=== PATIENT | female | born 1950 | race Caucasian/White ===

== ENCOUNTER 2016-10-31 10:06 | Outpatient (CLI) | payer MEDICARE, OTHER | END 2016-10-31 10:07 | disposition home or self-care (01) | DX: Z12.31 Encounter for screening mammogram for malignant neoplasm of breast (principal) ==

== ENCOUNTER 2017-09-25 09:36 | Outpatient (CLI) | payer MEDICARE ==
--- NOTE | 2017-09-25 15:30 | XRAY Report ---
DATE OF SERVICE: 09/25/2017 TWO VIEW CHEST: 09/25/2017 CLINICAL INDICATION: Cough. FINDINGS: Frontal and lateral views of the chest demonstrate a normal cardiac silhouette. The lungs are clear. No effusion or pneumothorax is evident. IMPRESSION: NORMAL CHEST. TD: 09/25/2017 16:28
== END 2017-09-25 09:37 | disposition home or self-care (01) ==
LOC: DI.S 09:36
PROVIDERS: ATTEND Nurse Practitioner Family
DX: R05 Cough (principal)
CPT/HCPCS: 71046

== ENCOUNTER 2019-07-25 14:43 | Emergency (ER) | payer MEDICARE, OTHER ==
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
[2019-07-25] MEDS ORDERED: MORPHINE 2 MG/ML CARPUJECT IVP STA (15:01)
[2019-07-25] MEDS ORDERED: PROMETHAZINE 25 MG/1 ML VIAL IM STA (15:01)
[2019-07-25] MEDS ORDERED: BACITRACIN ZINC OINT 14 GM TOP ONE (15:15)
[2019-07-25] MEDS ORDERED: BACITRACIN ZINC OINT 14 GM TOP STA (16:10)
[2019-07-25] MEDS ORDERED: TETANUS/DIPHTHERIA/PERTUSSIS 0.5 ML SYRINGE IM ONE (16:10)
[2019-07-25 16:31] VITALS: BP 135/67
== END 2019-07-25 16:31 | disposition home or self-care (01) ==
LOC: ED 14:43
DX: T20.26XA Burn of second degree of forehead and cheek, initial encounter (principal); T20.24XA Burn of second degree of nose (septum), initial encounter; T20.16XA Burn of first degree of forehead and cheek, initial encounter; T20.17XA Burn of first degree of neck, initial encounter; T31.0 Burns involving less than 10% of body surface; X03.0XXA Exposure to flames in controlled fire, not in building or structure, initial encounter; Y93.89 Activity, other specified; Z23 Encounter for immunization
CPT/HCPCS: 90471; 90715; 96374; 99283; 99284; A9270

== ENCOUNTER 2021-09-30 13:56 | Outpatient (CLI) | payer MEDICARE, OTHER ==
--- NOTE | 2021-10-01 08:17 | Mammography Report ---
BILATERAL DIGITAL SCREENING MAMMOGRAM 3D/2D WITH EXAGGERATED CC: 09/30/2021 CLINICAL: Routine screening. Comparison is made to exams dated: 10/31/2016 mammogram - [facility] and 11/23/2013 mammogram - [facility]. The tissue of both breasts is predominantly fatty. No significant masses, calcifications, or other findings are seen in either breast. There has been no significant interval change. IMPRESSION: NEGATIVE There is no mammographic evidence of malignancy. A 1 year screening mammogram is recommended. This exam was interpreted at Station ID: [id number]. NOTE: For mammograms, a report in lay terms will be sent to the patient. Approximately 15% of breast malignancies will not be visualized mammographically. In the management of a palpable breast mass, a negative mammogram must not discourage biopsy of a clinically suspicious lesion. Electronically Signed By: Hamzah Joe M.D., [email or web address]/kaliarad:09/30/2021 15:01:24 ACR BI-RADS Category 1: Negative 3341F PARENCHYMAL PATTERN: (F) - The breast(s) demonstrate(s) diffuse fatty replacement. BI-RADS CATEGORY: (1) - 1 RECOMMENDATION: (ANNUAL) - Recommend routine annual screening mammography. [id number] 1 year screening LATERALITY: (B)
== END 2021-09-30 13:57 | disposition home or self-care (01) ==
LOC: DI.S 13:56
PROVIDERS: ATTEND Nurse Practitioner Family
DX: Z12.31 Encounter for screening mammogram for malignant neoplasm of breast (principal)

== ENCOUNTER 2021-12-07 11:24 | Outpatient (CLI) | payer MEDICARE, OTHER ==
--- NOTE | 2021-12-07 12:18 | XRAY Report ---
PROCEDURE: Shoulder 3 View RT INDICATIONS: Prior fall with continued pain. TECHNIQUE: 3 views of the shoulder were acquired. COMPARISON: None. FINDINGS: Bones: No fractures or dislocations. No suspicious bony lesions. Visualized ribs appear intact. M ild degenerative changes are seen. Soft tissues: No suspicious soft tissue calcifications. The visualized lung demonstrates a normal a ppearance. IMPRESSION: No acute posttraumatic abnormality can be seen. Mild degenerative changes are seen. If it would be helpful for clinical management decision making, please consider a dedicated, schedule d shoulder MRI for further evaluation (assuming that there is no contraindication). Reviewed by: Tucker Mendez MD on 12/07/2021 11:17 AM [facility] Approved by: Tucker Mendez MD on 12/07/2021 11:17 AM [facility] Station ID: [id number]
== END 2021-12-07 11:25 | disposition home or self-care (01) ==
LOC: DI.S 11:24
PROVIDERS: ATTEND Nurse Practitioner Family
DX: M19.011 Primary osteoarthritis, right shoulder (principal)

== ENCOUNTER 2024-03-01 14:52 | Outpatient (CLI) | payer MEDICARE, OTHER ==
--- NOTE | 2024-03-02 09:36 | Mammography Report ---
BILATERAL DIGITAL SCREENING MAMMOGRAM 3D/2D: 03/01/2024 CLINICAL: Routine screening. Comparison is made to exams dated: 09/30/2021 mammogram, 10/31/2016 mammogram - [facility], and 11/23/2013 mammogram - [facility]. Both breasts are heterogeneously dense, which may obscure small masses (category c / 51-75% glandular tissue). No significant masses, calcifications, or other findings are seen in either breast. There has been no significant interval change. IMPRESSION: NEGATIVE There is no mammographic evidence of malignancy. A 1 year screening mammogram is recommended. Based on the Tyrer Cuzick model (a risk assessment model) the patient's lifetime risk is 5.9% and her 10 year risk is 4.4%. According to the ACR, ACS, and NCCN guidelines, an annual breast MRI exam ismael g with mammogram is recommended if the patient's lifetime risk is 20% or greater. This exam was interpreted at Station ID: [id number]. NOTE: For mammograms, a report in lay terms will be sent to the patient. Approximately 15% of breast malignancies will not be visualized mammographically. In the management of a palpable breast mass, a negative mammogram must not discourage biopsy of a clinically suspicious lesion. Electronically Signed By: Samaria beyer/janel:03/01/2024 16:31:25 letter sent: No_Letter ACR BI-RADS Category 1: Negative 3341F PARENCHYMAL PATTERN: (D) - The breast(s) demonstrate(s) heterogeneously dense fibroglandular leonidas ceja. BI-RADS CATEGORY: (1) - 1 RECOMMENDATION: (ANNUAL) - Recommend routine annual screening mammography. [id number] 1 year screening LATERALITY: (B)
== END 2024-03-01 14:53 | disposition home or self-care (01) ==
LOC: DI.S 14:52
PROVIDERS: ATTEND Registered Nurse
DX: Z12.31 Encounter for screening mammogram for malignant neoplasm of breast (principal); R92.333 Mammographic heterogeneous density, bilateral breasts

== ENCOUNTER 2024-04-11 08:00 | Outpatient (CLI) | payer MEDICARE, OTHER ==
[2024-04-11 20:54] LABS: CHLAMYDIA TRACHOMATIS DNA NEGATIVE (NEGATIVE); NEISSERIA GONORRHOEAE DNA NEGATIVE (NEGATIVE)
[2024-04-11 22:35] LABS: BACTERIAL VAGINOSIS DNA NEGATIVE (NEGATIVE); CANDIDA GLABRATA DNA NEGATIVE (NEGATIVE); CANDIDA GROUP DNA NEGATIVE (NEGATIVE); CANDIDA KRUSEI DNA NEGATIVE (NEGATIVE); TRICHOMONAS VAGINALIS DNA NEGATIVE (NEGATIVE)
== END 2024-04-11 23:59 | disposition home or self-care (01) ==
LOC: LAB.N 08:00
PROVIDERS: ATTEND Registered Nurse
DX: N93.9 Abnormal uterine and vaginal bleeding, unspecified (principal); R10.2 Pelvic and perineal pain
CPT/HCPCS: 81514; 87491; 87591; 87661

== ENCOUNTER 2024-04-16 12:58 | Outpatient (CLI) | payer MEDICARE, OTHER ==
--- NOTE | 2024-04-17 09:51 | Ultrasound Report ---
PROCEDURE: Pelvic w/Transvaginal INDICATIONS: ABN VAG BLEED TECHNIQUE: Real-time scanning was performed of the pelvic organs, with image documentation. Additional endovagi nal scanning was necessary due to incomplete visualization of the adnexal and endometrial structures by transabdominal scanning. COMPARISON: None. FINDINGS: Uterus: Uterus is anteverted and normal in size at 10.2 x 4.8 x 5.3 cm. The myometrium is homogeneo us. The endometrium measures 7 mm in combined thickness. Intramural fibroid in the mid uterine segm ent measuring 1.9 x 1.5 x 1.6 cm. Vascular, mostly hypoechoic mass in the cervix measuring 3.4 x 1.6 x 3.1 cm. Ovaries: The right ovary measures 1.6 x 1.1 x 1.7 cm, with a calculated ovarian volume of 1.5 cc. T he left ovary measures 3.9 x 2.4 x 2.4 cm, with a calculated ovarian volume of 12 cc. The ovaries lares ve a normal sonographic appearance. No adnexal masses are seen. Simple appearing left ovarian cyst me asuring 3.2 x 2.1 x 2.3 cm. No internal papillary projections. Other: No pathologic free abdominal or pelvic fluid. IMPRESSION: Echogenic mass in the cervix measuring 2.4 x 1.6 x 3.1 cm. Recommend tissue sampling as findings are concerning for malignancy. O-RADS 2 left ovarian cyst. Reviewed by: Alonso Bejarano MD on 04/17/2024 9:50 AM PDT Approved by: Alonso Bejarano MD on 04/17/2024 9:50 AM PDT Station ID: [id number]
== END 2024-04-16 12:59 | disposition home or self-care (01) ==
LOC: DI 12:58
PROVIDERS: ATTEND Registered Nurse
DX: N88.9 Noninflammatory disorder of cervix uteri, unspecified (principal); D25.1 Intramural leiomyoma of uterus

== ENCOUNTER 2024-05-23 13:36 | Outpatient (CLI) | payer MEDICARE, OTHER ==
--- NOTE | 2024-05-23 18:21 | DEXA Report ---
PROCEDURE: Dexa Spine and/or Hip INDICATIONS: OSTEOPOROSIS TECHNIQUE: Dual energy x-ray absorptiometry (DXA) was performed on a [employer] System. Regions measur ed are the AP Spine, femoral neck, and if needed forearm. COMPARISON: DEXA 03/19/2022 FINDINGS: Lumbar Spine: Bone Mineral Density: 1.182 g/cm/cm,T score: -0.1. Since the most recent prior study, there has been a statistically significant decrease in bone mineral density by 7.3 percent. Left Femoral Neck: Bone Mineral Density: 0.661 g/cm/cm, T score: -2.7. Left Hip: Bone Mineral Density: 0.739 g/cm/cm,T score: -2.1. There has been no statistically significant change in bone mineral density since the prior study. FRAX score not calculated due to T score less than -2.5. (T score greater or equal to -1.0: NORMAL) (T score from -1.1 to -2.4: OSTEOPENIA) (T score less than or equal to -2.5 to: OSTEOPOROSIS) Impression: By WHO criteria, this patient has osteoporosis. Interval statistical decrease in bone mineral density of the lumbar spine. No statistical interval ch rk in bone mineral density of the hip. Patients with diagnosis of osteoporosis or osteopenia should have regular bone mineral density assess ment. For those eligible for Medicare, routine testing is allowed once every 2 years. Testing frequ ency can be increased for patients who have rapidly progressing disease or for those who are receivin g medical therapy to restore bone mass. Reviewed by: Wenceslao Carpio MD on 05/23/2024 5:20 PM [facility] Approved by: Wenceslao Carpio MD on 05/23/2024 5:20 PM [facility] Station ID: [id number]
== END 2024-05-23 13:37 | disposition home or self-care (01) ==
LOC: DI 13:36
PROVIDERS: ATTEND Registered Nurse
DX: M81.0 Age-related osteoporosis without current pathological fracture (principal)